=== PATIENT | male | born 1985 | race African-American/Black ===

== ENCOUNTER 2024-02-20 16:48 | Emergency (ER) | payer BC, SELFPAY ==
[2024-02-20] MEDS ORDERED: Bupivacaine 0.5% 10 ML VIAL ONE (17:05)
== END 2024-02-20 17:34 | disposition home or self-care (01) ==
LOC: BURERS 16:48
DX: K04.7 Periapical abscess without sinus (principal); F17.290 Nicotine dependence, other tobacco product, uncomplicated
CPT/HCPCS: 99282; J3490